=== PATIENT | female | born 1960 ===

== ENCOUNTER 2017-10-10 15:22 | Emergency (ER) | payer OTHER ==
[2017-10-10 15:22] VITALS: BMI 46.0
[2017-10-10 16:00] VITALS: TEMP 98.1; O2SAT 98
[2017-10-10 16:59] LABS: BASO # 0.1 K/uL (0.0-0.2); EOS # 0.1 K/uL (0.0-0.7); EOS % 0.5 % (0.0-4.0); HEMATOCRIT 44.3 % (34.0-47.0); LYMPH # 2.6 K/uL (1.0-4.3); LYMPH % 20.6 % (20.0-40.0); MEAN CELL VOLUME 78.9 fl (81.0-99.0); MEAN CORPUSCULAR HEMOGLOBIN 25.6 pg (27.0-31.0); MEAN CORPUSCULAR HGB CONC 32.5 g/dL (33.0-37.0); MEAN PLATELET VOLUME 8.2 fl (7.2-11.7); MONO # 0.3 K/uL (0.0-0.8); MONO % 2.6 % (0.0-10.0); NEUT # 9.7 K/uL (1.8-7.0); NEUT % 75.3 % (50.0-75.0); NRBC % 0.1 % (0.0-0.0); RED CELL DISTRIBUTION WIDTH 16.4 % (11.5-14.5); WHITE BLOOD COUNT 12.8 K/uL (4.8-10.8)
[2017-10-10 17:10] LABS: ALKALINE PHOSPHATASE 112 U/L (38-126); ALT/SGPT 34 U/L (9-52); AST/SGOT 29 U/L (14-36); BILIRUBIN,TOTAL 0.6 mg/dl (0.2-1.3); BLOOD UREA NITROGEN 12 mg/dl (7-17); CARBON DIOXIDE 26 mmol/L (22-30); CHLORIDE 99 mmol/L (98-107); GFR AFRICAN-AMERICAN > 60; GLUCOSE,RANDOM 126 mg/dL (65-105); POTASSIUM 3.3 MMOL/L (3.6-5.0); SODIUM 141 mmol/l (132-148); TOTAL PROTEIN 9.2 G/DL (6.3-8.2)
[2017-10-10] MEDS ORDERED: Potassium CL 10mEq/100ml 100 ML IVPB ONE (17:18)
[2017-10-10 17:40] LABS: ALB/GLOB RATIO 1.3 (1.0-2.1)
[2017-10-10 17:44] LABS: THYROID STIMULATING HORMONE 0.94 mIU/ML (0.46-4.68)
--- NOTE | 2017-10-10 17:50 | ED PDOC ---
HPI: Neurologic - General Time Seen by Provider: 10/10/17 16:06 Chief Complaint (Nursing): Dizziness/Lightheaded Chief Complaint (Provider): dizziness Exam Limitations: no limitations - History of Present Illness Timing/Duration: other (1 month, but h/o dizziness for 2 years intermittently) Associated Symptoms: fatigue, nausea/vomiting, numbness in legs/feet, paresthesia, weakness. denies: fever/chills, insomnia, loss of consciousness, muscle spasms, ringing in ears, seizures, slurred speech, trouble walking, vision changes Allergies/Adverse Reactions: Allergies acetaminophen [From Percocet] Allergy (Verified 01/25/16 12:03) FAINT hydrochlorothiazide Allergy (Verified 01/25/16 12:03) MOUTH TINGLING losartan [Losartan] Allergy (Verified 01/25/16 12:03) MOUTH TINGLING oxycodone HCl [From Percocet] Allergy (Verified 01/25/16 12:03) FAINT topiramate [From Topamax] Allergy (Verified 01/25/16 12:03) TINGLING TO BODY valacyclovir HCl [From Valtrex] Allergy (Verified 01/25/16 12:03) URTICARIA Home Medications: Ambulatory Orders Aspirin [Ecotrin] 81 mg PO DAILY 01/25/16 Atenolol/Chlorthalidone [Atenolol-Chlorthalidone 100-25] 1 tab PO DAILY Brimonidine Tartrate 1 drop BOTHEYES BID 01/25/16 Dorzolamide HCl [Trusopt] 1 drop BOTHEYES BID 01/25/16 Simvastatin [Zocor] 40 mg PO DAILY 01/25/16 Meclizine [Antivert] 25 mg PO Q12 #30 tab 01/26/16 amLODIPine [Norvasc] 5 mg PO DAILY #30 tab 01/09/17 Diazepam [Valium] 2 mg PO BID PRN #10 tab 10/10/17 Additional Complaint(s): Vertiginous dizziness for 2 years, but worsened over the last month. Taking meclizine with no relief. Seen in this ER for same 2016 and had inpatient workup, and followed up with ENT , which was normal as well. PMD: Nemesio Davenport in [place] Past Medical History Reviewed: Historical Data, Nursing Documentation, Vital Signs Vital Signs: Last Vital Signs Temp 98.1 F 10/10/17 15:57 Pulse 57 L 10/10/17 15:57 Resp 16 10/10/17 15:57 BP 181/62 H 10/10/17 15:57 Pulse Ox 98 10/10/17 15:57 - Medical History PMH: Arthritis, HTN, Hypercholesterolemia, Hyperlipidemia - Surgical History Surgical History: Cholecystectomy Other surgeries: Tubal ligation - Family History Family History: States: Diabetes, Hypertension - Social History Current smoker - smoking cessation education provided: No Alcohol: None Drugs: Denies - Home Medications Home Medications: Ambulatory Orders Medication Instructions Recorded Aspirin [Ecotrin] 81 mg PO DAILY 01/25/16 Atenolol/Chlorthalidone 1 tab PO DAILY 01/25/16 [Atenolol-Chlorthalidone 100-25] Brimonidine Tartrate 1 drop BOTHEYES BID 01/25/16 Dorzolamide HCl [Trusopt] 1 drop BOTHEYES BID 01/25/16 Simvastatin [Zocor] 40 mg PO DAILY 01/25/16 Meclizine [Antivert] 25 mg PO Q12 #30 tab 01/26/16 amLODIPine [Norvasc] 5 mg PO DAILY #30 tab 01/09/17 Diazepam [Valium] 2 mg PO BID PRN #10 tab 10/10/17 - Allergies Allergies/Adverse Reactions: Allergies Allergy/AdvReac Type Severity Reaction Status Date / Time acetaminophen [From Percocet] Allergy FAINT Verified 01/25/16 12:03 hydrochlorothiazide Allergy MOUTH Verified 01/25/16 12:03 TINGLING losartan [Losartan] Allergy MOUTH Verified 01/25/16 12:03 TINGLING oxycodone HCl [From Percocet] Allergy FAINT Verified 01/25/16 12:03 topiramate [From Topamax] Allergy TINGLING Verified 01/25/16 12:03 TO BODY valacyclovir HCl Allergy URTICARIA Verified 01/25/16 12:03 [From Valtrex] Review of Systems ROS Statement: Except As Marked, All Systems Reviewed And Found Negative (and as per HPI) Constitutional: Positive for: Weakness, Malaise Cardiovascular: Positive for: Light Headedness. Negative for: Chest Pain Respiratory: Negative for: Shortness of Breath Gastrointestinal: Positive for: Nausea, Vomiting. Negative for: Abdominal Pain , Diarrhea Neurological: Positive for: Headache, Dizziness. Negative for: Weakness, Numbness Psych: Positive for: Anxiety Physical Exam - Reviewed Nursing Documentation Reviewed: Yes Vital Signs Reviewed: Yes - Physical Exam Appears: Positive for: Non-toxic, Uncomfortable Head Exam: Positive for: ATRAUMATIC, NORMOCEPHALIC Skin: Positive for: Warm, Dry Eye Exam: Positive for: EOMI, PERRL. Negative for: Nystagmus ENT: Negative for: Pharyngeal Erythema, Tonsillar Exudate Neck: Positive for: Painless ROM, Supple Cardiovascular/Chest: Positive for: Regular Rate, Rhythm, Chest Non Tender. Negative for: Murmur Respiratory: Positive for: Normal Breath Sounds. Negative for: Wheezing Gastrointestinal/Abdominal: Positive for: Soft. Negative for: Tenderness Back: Positive for: Normal Inspection. Negative for: Vertebral Tenderness Extremity: Positive for: Normal ROM. Negative for: Deformity Lymphatic: Negative for: Adenopathy Neurologic/Psych: Positive for: Alert, office coordinator II-XII (intact), Oriented (x3), Mood/ Affect (anxious), Cerebellar Tests (normal), Gait (normal), Other ([place] increased symptoms in both directions). Negative for: Motor/Sensory Deficits, Aphasia, Facial Droop - Laboratory Results Result Diagrams: 10/10/17 16:52 10/10/17 16:52 Interpretation Of Abn Labs: Leukocytosis, hypokalemia. No emergently significant lab abnormalities. - ECG ECG: Positive for: Interpreted By Me ECG Rhythm: Positive for: Normal QRS, Normal ST Segment, Sinus Rhythm O2 Sat by Pulse Oximetry: 98 Pulse Ox Interpretation: Normal - Progress ED Course And Treament: DW pt hypokalemia and bradycardia. She reports she always has hypokalemia and bradycardia. Accession No. : [id number] Patient Name / ID : TRENTON REYES / [id number] Exam Date : 10/10/2017 18:40:34 ( Approved ) Study Comment : Sex / Age : F / 57Y Creator : Adilson Mathews MD Dictator : Workers Compensation Analyst : Supervisor Cutting Department : Adilson Mathews MD Approver2 : Report Date : 10/10/2017 19:41:00 My Comment : [facility] Division of Radiology [address] [facility] [address] Tel. no. Patient Name: ERIC CHOWDHURY Pt. Address: [address] [place] [address] Med. Rec #: [id number] [place] [address]: Jey MANNING, Nae Jaramillo Pt CELL Order Location: REGINA : 1960 Female Age: 57 Order #: [id number] Reason for exam: DIZZINESS HEADACHE CT Scan HEAD W/O CONTRAST Exam Date: 10/10/17 This imaging exam was performed at [facility] EXAM: CT Head Without Intravenous Contrast CLINICAL HISTORY: 57 years old, female; Signs and symptoms; Dizziness; Additional info: Dizziness headache TECHNIQUE: Axial computed tomography images of the head/brain without intravenous contrast. All CT scans at this facility use one or more dose reduction techniques, viz.: automated exposure control; ma/kV adjustment per patient size (including targeted exams where dose is matched to indication; i.e. head); or iterative reconstruction technique. Coronal and sagittal reformatted images were created and reviewed. COMPARISON: CT - HEAD W/O CONTRAST 2017-01-08 14:28 FINDINGS: Brain: No intracranial hemorrhage. No mass. No definite edema. Ventricles: No hydrocephalus. Bones/joints: No acute fracture. Soft tissues: Unremarkable. Sinuses: No acute sinusitis. Mastoid air cells: No mastoid effusion. Orbits: Unremarkable as visualized. IMPRESSION: 1. No acute intracranial abnormality. Dictated By: Adilson Mathews MD Dictated Date/Time: 10/10/171940 Signed By: Adilson Mathews MD Date Signed: 1940 Transcribed By: BERNICE Transcribe Date/Time : 10/10/171940 [id number] Re-evaluation Time: 18:00 Condition: Improved Disposition - Clinical Impression Clinical Impression: Severe dizziness, Hypokalemia Counseled Patient/Family Regarding: Studies Performed, Diagnosis, Need For Followup, Rx Given - Disposition Referrals: [facility] [place] [Outside] - 10/14/17 ([facility] SHANTE MIERCOLES O VIERN[facility]) Disposition: Routine/Home Disposition Time: 19:52 Condition: IMPROVED Prescriptions: Diazepam [Valium] 2 mg PO BID PRN #10 tab PRN Reason: SEVERE DIZZINESS Instructions: Dizziness (ED), Stress (ED), Hypokalemia (ED) Print Language: YI
[2017-10-10 18:28] VITALS: BP 136/61; PULSE 78; RESP 18
--- NOTE | 2017-10-10 19:41 | CT ---
EXAM: CT Head Without Intravenous Contrast CLINICAL HISTORY: 57 years old, female; Signs and symptoms; Dizziness; Additional info: Dizziness headache TECHNIQUE: Axial computed tomography images of the head/brain without intravenous contrast. All CT scans at this facility use one or more dose reduction techniques, viz.: automated exposure control; ma/kV adjustment per patient size (including targeted exams where dose is matched to indication; i.e. head); or iterative reconstruction technique. Coronal and sagittal reformatted images were created and reviewed. COMPARISON: CT - HEAD W/O CONTRAST 2017-01-08 14:28 FINDINGS: Brain: No intracranial hemorrhage. No mass. No definite edema. Ventricles: No hydrocephalus. Bones/joints: No acute fracture. Soft tissues: Unremarkable. Sinuses: No acute sinusitis. Mastoid air cells: No mastoid effusion. Orbits: Unremarkable as visualized. IMPRESSION: 1. No acute intracranial abnormality.
--- NOTE | 2017-10-11 08:27 | CARD ---
APPROVED REPORT EKG Measurement Heart [id number] <Conclusion> Normal sinus rhythm Nonspecific ST abnormality Prolonged QT Abnormal ECG
== END 2017-10-10 20:42 | disposition home or self-care (01) ==
LOC: H.ER 15:22
DX: R42 Dizziness and giddiness (principal); E87.6 Hypokalemia; E78.00 Pure hypercholesterolemia, unspecified; I10 Essential (primary) hypertension; Z79.82 Long term (current) use of aspirin; Z88.5 Allergy status to narcotic agent
CPT/HCPCS: 70450; 80053; 80324; 80345; 80346; 80349; 80353; 80358; 80361; 82948; 83735; 83880; 83992; 84100; 84443; 84484; 85025; 93005; 96374; 99285; J2405; J3480

== ENCOUNTER 2019-03-06 17:33 | Observation (INO) | payer OTHER ==
[2019-03-06 17:34] VITALS: BMI 46.0
--- NOTE | 2019-03-06 19:12 | ED PDOC ---
HPI: Chest Pain Time Seen by Provider: 03/06/19 18:11 Chief Complaint (Nursing): Chest Pain Chief Complaint (Provider): Chest Pain History Per: Patient History/Exam Limitations: no limitations Onset/Duration Of Symptoms: Days (x2) Current Symptoms Are (Timing): Still Present Additional Complaint(s): Patient is a 59 year old female with a past medical history of glaucoma, osteoarthritis and has recently been diagnosed with diabetes, who presents to the emergency department complaining of chest pain and fatigue, x2 days. Patient states the pain is mid sternal and has mild shortness of breath with no cough, fever, nausea or vomiting. Patient has no known history of cardiac diseases or heart attacks. PMD: Roosevelt Jordan Past Medical History Reviewed: Historical Data, Nursing Documentation, Vital Signs Vital Signs: Last Vital Signs Temp 98.4 F 03/06/19 17:42 Pulse 62 03/06/19 18:03 Resp 16 03/06/19 18:03 BP 140/76 03/06/19 18:03 Pulse Ox 100 03/06/19 17:42 - Medical History PMH: Arthritis, HTN, Hypercholesterolemia, Hyperlipidemia Other PMH: glaucoma - Surgical History Surgical History: Cholecystectomy - Family History Family History: States: Unknown Family Hx, Diabetes, Hypertension - Home Medications Home Medications: Ambulatory Orders Medication Instructions Recorded Aspirin [Ecotrin] 81 mg PO DAILY 01/25/16 Brimonidine Tartrate 1 drop BOTHEYES BID 01/25/16 Dorzolamide HCl [Trusopt] 1 drop BOTHEYES BID 01/25/16 Simvastatin [Zocor] 40 mg PO DAILY 01/25/16 Meclizine [Meclizine*] 25 mg PO Q12 #30 tab 01/26/16 amLODIPine [Norvasc] 5 mg PO DAILY #30 tab 01/09/17 Latanoprost/Pf [Latanoprost 0.005% 1 drop BOTHEYES DAILY 03/06/19 Eye Drop] busPIRone [Buspar] 10 mg PO BID 03/06/19 - Allergies Allergies/Adverse Reactions: Allergies Allergy/AdvReac Type Severity Reaction Status Date / Time acetaminophen [From Percocet] Allergy FAINT Verified 03/06/19 17:42 hydrochlorothiazide Allergy MOUTH Verified 03/06/19 17:42 TINGLING losartan [Losartan] Allergy MOUTH Verified 03/06/19 17:42 TINGLING oxycodone HCl [From Percocet] Allergy FAINT Verified 03/06/19 17:42 topiramate [From Topamax] Allergy TINGLING Verified 03/06/19 17:42 TO BODY valacyclovir HCl Allergy URTICARIA Verified 03/06/19 17:42 [From Valtrex] Review of Systems ROS Statement: Except As Marked, All Systems Reviewed And Found Negative Constitutional: Negative for: Fever Cardiovascular: Positive for: Chest Pain Respiratory: Negative for: Cough, Shortness of Breath Gastrointestinal: Negative for: Nausea, Vomiting Physical Exam - Reviewed Nursing Documentation Reviewed: Yes Vital Signs Reviewed: Yes - Physical Exam Appears: Positive for: Non-toxic, No Acute Distress Head Exam: Positive for: ATRAUMATIC, NORMOCEPHALIC Skin: Positive for: Normal Color, Warm, Dry. Negative for: Rash Eye Exam: Positive for: Normal appearance, EOMI, PERRL ENT: Positive for: Normal ENT Inspection Neck: Positive for: Normal, Painless ROM, Supple Cardiovascular/Chest: Positive for: Regular Rate, Rhythm. Negative for: Murmur Respiratory: Positive for: Normal Breath Sounds. Negative for: Respiratory Distress Gastrointestinal/Abdominal: Positive for: Normal Exam, Soft. Negative for: Tenderness Back: Positive for: Normal Inspection. Negative for: L CVA Tenderness, R CVA Tenderness, Vertebral Tenderness Extremity: Positive for: Normal ROM. Negative for: Pedal Edema, Deformity Neurological/Psych: Positive for: Alert, Oriented - Laboratory Results Result Diagrams: 03/07/19 04:45 03/07/19 04:45 - ECG O2 Sat by Pulse Oximetry: 100 (RA) Pulse Ox Interpretation: Normal Medical Decision Making Medical Decision Making: Time: 1905 A/P: Work up for chest pain, ACS. EKG shows no ST elevations/inversions. Will do basic cardiac work up. Ekg Bmp Troponin I CBC with differential Chest xray 2 views 1899 --Patient care endorsed to DR. Calderón, pending labs and chest xray. Scribe Attestation: Documented by Joey Devries, acting as a scribe Haider Kearns MD. Provider Scribe Attestation: All medical record entries made by the Scribe were at my direction and personally dictated by me. I have reviewed the chart and agree that the record accurately reflects my personal performance of the history, physical exam, medical decision making, and the department course for this patient. I have also personally directed, reviewed, and agree with the discharge instructions and disposition. Disposition - Clinical Impression Clinical Impression: Chest pain - Disposition Disposition: Transfer of Care Disposition Time: 19:00 Condition: FAIR
[2019-03-06 19:14] LABS: BASO # 0.1 K/uL (0.0-0.2); BASO % 0.9 % (0.0-2.0); EOS # 0.2 K/uL (0.0-0.7); EOS % 1.8 % (0.0-4.0); HEMOGLOBIN 13.1 g/dL (12.0-16.0); LYMPH # 2.3 K/uL (1.0-4.3); LYMPH % 25.5 % (20.0-40.0); MEAN CELL VOLUME 77.9 fl (81.0-99.0); MEAN CORPUSCULAR HEMOGLOBIN 25.3 pg (27.0-31.0); MEAN CORPUSCULAR HGB CONC 32.5 g/dL (33.0-37.0); MEAN PLATELET VOLUME 7.9 fl (7.2-11.7); MONO # 0.6 K/uL (0.0-0.8); MONO % 6.2 % (0.0-10.0); NEUT # 5.8 K/uL (1.8-7.0); NEUT % 65.6 % (50.0-75.0); RBC 5.17 Mil/uL (3.80-5.20); RED CELL DISTRIBUTION WIDTH 16.5 % (11.5-14.5); WHITE BLOOD COUNT 8.9 K/uL (4.8-10.8)
--- NOTE | 2019-03-06 19:20 | ED PDOC ---
- Laboratory Results Result Diagrams: 03/06/19 19:06 03/06/19 19:06 - ECG O2 Sat by Pulse Oximetry: 100 (RA) Pulse Ox Interpretation: Normal Medical Decision Making Medical Decision Making: Time: 1899 --Patient care endorsed by Dr. Kearns pending labs and chest xray. Time: 1999 --Patient's labs are within normal limits, CXR shows no acute abnormalities --Results discussed with patient and daughter, advised OBS for continuous cardiac monitoring and serial troponins given age and risk factors --Case discussed with Dr. Vazquez who accepts admission Scribe Attestation: Documented by Joey Devries, acting as a scribe Nehemiah Calderón MD. Provider Scribe Attestation: All medical record entries made by the Scribe were at my direction and personally dictated by me. I have reviewed the chart and agree that the record accurately reflects my personal performance of the history, physical exam, medical decision making, and the department course for this patient. I have also personally directed, reviewed, and agree with the discharge instructions and disposition. Disposition - Clinical Impression Clinical Impression: Chest pain - POA Present On Arrival: None - Disposition Disposition: Hospitalized as Observation Patient Disposition Time: 20:00 Condition: FAIR
[2019-03-06 19:28] LABS: BLOOD UREA NITROGEN 11 mg/dl (7-17); CALCIUM 9.7 mg/dL (8.4-10.2); GFR NON-AFRICAN AMERICAN > 60
--- NOTE | 2019-03-06 20:32 | CP.PCM.HP ---
<Ariane Hill - Last Filed: 03/06/19 21:21> History of Present Illness - History of Present Illness History of Present Illness: 59 yo obese female with PMHx hereditary glaucoma, HTN, HLD, OA presents to ED c/o chest pain onset 2 days ago at rest. She states having MCGRATH at home and she took the BP and was 215/100. on arrival BP was 140/70. Patient describes the pain as a pressure in mid sternal and that is reproducible with chest wall palpation. Pain does not radiates and does not have alleviating or aggravating factors. Patient endorses previous episode of similar pain 5 years ago and was told that pain was MSK in origin. She also states pain has been on and off since then and has an appt on on [facility] for cardiac stress test. She also states h/o anxiety and expressed this has been a tough week for her. Patient denies shortness of breath, cough, fever, nausea or vomiting, no epigastric or other abd pain. PMD: Roosevelt Jordan PMHx: hereditary glaucoma, HTN, HLD, OA Medications: reviewed, see below SHx: cholecystectomy, BTL Allergy: as above SocHx: lives with daughter and ; denies etoh, smoking or illicit drug use ED course: CBC/Bmp wnl Troponin I x1 negative Chest xray negative for acute pulmonary disease Ekg shows no ST elevations/inversions. ASA 162 mg po once Present on Admission - Present on Admission Any Indicators Present on Admission: No Review of Systems - Review of Systems All systems: reviewed and no additional remarkable complaints except (HPI) Past Patient History - Infectious Disease Hx of Infectious Diseases: None - Past Social History Smoking Status: Never Smoked - CARDIAC Hx Hypercholesterolemia: Yes Hx Hypertension: Yes - NEUROLOGICAL Hx Dizziness: Yes - HEENT Hx Glaucoma: Yes - ENDOCRINE/METABOLIC Other/Comment: pre-dm - MUSCULOSKELETAL/RHEUMATOLOGICAL Hx Arthritis: Yes - PSYCHIATRIC Hx Substance Use: No - SURGICAL HISTORY Hx Cholecystectomy: Yes - ANESTHESIA Hx Anesthesia: Yes Hx Anesthesia Reactions: No Meds Allergies/Adverse Reactions: Allergies Allergy/AdvReac Type Severity Reaction Status Date / Time acetaminophen [From Percocet] Allergy FAINT Verified 03/06/19 17:42 hydrochlorothiazide Allergy MOUTH Verified 03/06/19 17:42 TINGLING losartan [Losartan] Allergy MOUTH Verified 03/06/19 17:42 TINGLING oxycodone HCl [From Percocet] Allergy FAINT Verified 03/06/19 17:42 topiramate [From Topamax] Allergy TINGLING Verified 03/06/19 17:42 TO BODY valacyclovir HCl Allergy URTICARIA Verified 03/06/19 17:42 [From Valtrex] Physical Exam - Constitutional Appears: No Acute Distress - Head Exam Head Exam: NORMAL INSPECTION - Eye Exam Eye Exam: EOMI, PERRL - ENT Exam ENT Exam: Mucous Membranes Moist - Respiratory Exam Respiratory Exam: Clear to Auscultation Bilateral. absent: Rales, Wheezes - Cardiovascular Exam Cardiovascular Exam: REGULAR RHYTHM, +S1, +S2. absent: Tachycardia, Systolic Murmur Additional comments: Chest wall tender on palpation - GI/Abdominal Exam GI & Abdominal Exam: Normal Bowel Sounds, Soft. absent: Distended, Tenderness - Extremities Exam Extremities exam: Negative for: calf tenderness, pedal edema - Neurological Exam Neurological exam: Alert, CN II-XII Intact, Oriented x3 - Skin Skin Exam: Dry, Normal Color, Warm Results - Vital Signs Recent Vital Signs: Last Vital Signs Temp 98.4 F 03/06/19 17:42 Pulse 62 03/06/19 18:03 Resp 16 03/06/19 18:03 BP 140/76 03/06/19 18:03 Pulse Ox 100 03/06/19 19:20 - Labs Result Diagrams: 03/06/19 19:06 03/06/19 19:06 Labs: Laboratory Results - last 24 hr 03/06/19 03/06/19 19:06 19:06 WBC 8.9 RBC 5.17 Hgb 13.1 Hct 40.3 MCV 77.9 L MCH 25.3 L MCHC 32.5 L RDW 16.5 H Plt Count 364 MPV 7.9 Neut % (Auto) 65.6 Lymph % (Auto) 25.5 Candler % (Auto) 6.2 Eos % (Auto) 1.8 Baso % (Auto) 0.9 Neut # (Auto) 5.8 Lymph # (Auto) 2.3 Candler # (Auto) 0.6 Eos # (Auto) 0.2 Baso # (Auto) 0.1 Sodium 139 Potassium 3.6 Chloride 98 Carbon Dioxide 28 Anion Gap 17 BUN 11 Creatinine 0.6 L Est GFR ( Amer) > 60 Est GFR (Non-Af Amer) > 60 Random Glucose 134 H Calcium 9.7 Troponin I < 0.0120 Assessment & Plan - Assessment and Plan (Free Text) Assessment: 59 yo obese female with PMHx hereditary glaucoma, HTN, HLD, OA admitted for evaluation and management of CP r/o ACS vs MSK pain. Plan: Chest pain r/o ACS vs MSK pain - admit to tele - continue surveillance system monitor - heart healthy diet - troponin x1 negative, f/u trending - EKG and labs in am - for echo in am - Cardiology Dr Bee consulted, recs appreciated - ASA 81 mg - continue home meds - Ultram prn for pain HTN - controlled - continue home meds HLD - continue lipitor Anxiety - feeling anxious - continue home meds h/o Glaucoma - asymptomatic - continue home eyes drops DVT ppx - SCD for now. - pt ambulating Case seen and examined with Dr Vazquez. <Derick Vazquez - Last Filed: 03/07/19 05:40> Results - Vital Signs Recent Vital Signs: Last Vital Signs Temp 98.1 F 03/07/19 04:51 Pulse 70 03/07/19 04:51 Resp 20 03/07/19 04:51 BP 134/70 03/07/19 04:51 Pulse Ox 97 03/07/19 04:51 - Labs Result Diagrams: 03/06/19 19:06 03/06/19 19:06 Labs: Laboratory Results - last 24 hr 03/06/19 03/06/19 03/06/19 19:06 19:06 22:20 WBC 8.9 RBC 5.17 Hgb 13.1 Hct 40.3 MCV 77.9 L MCH 25.3 L MCHC 32.5 L RDW 16.5 H Plt Count 364 MPV 7.9 Neut % (Auto) 65.6 Lymph % (Auto) 25.5 Candler % (Auto) 6.2 Eos % (Auto) 1.8 Baso % (Auto) 0.9 Neut # (Auto) 5.8 Lymph # (Auto) 2.3 Candler # (Auto) 0.6 Eos # (Auto) 0.2 Baso # (Auto) 0.1 Sodium 139 Potassium 3.6 Chloride 98 Carbon Dioxide 28 Anion Gap 17 BUN 11 Creatinine 0.6 L Est GFR ( Amer) > 60 Est GFR (Non-Af Amer) > 60 POC Glucose (mg/dL) 199 H Random Glucose 134 H Calcium 9.7 Troponin I < 0.0120 03/07/19 03/07/19 01:00 05:06 WBC RBC Hgb Hct MCV MCH MCHC RDW Plt Count MPV Neut % (Auto) Lymph % (Auto) Candler % (Auto) Eos % (Auto) Baso % (Auto) Neut # (Auto) Lymph # (Auto) Candler # (Auto) Eos # (Auto) Baso # (Auto) Sodium Potassium Chloride Carbon Dioxide Anion Gap BUN Creatinine Est GFR ( Amer) Est GFR (Non-Af Amer) POC Glucose (mg/dL) 119 H Random Glucose Calcium Troponin I < 0.0120 Attending/Attestation - Attestation I have personally seen and examined this patient.: Yes I have fully participated in the care of the patient.: Yes I have reviewed all pertinent clinical information: Yes Notes (Text): 03/07/19 05:28 I saw, examined and discussed this patient with Dr Hill. i agree with the assessment and plan outlined. This is a 59 years old female with hx of HTN, Prediabetes and recurrent chest wall pain over the years, now comes with 2 days of this reproducible pain to the sternum and parasternal chest wall. The chest X Ray shows Left Atrial enlargemen t while the EKG shows 1st degree AV Block and prolonged Qtc We will treat for Muscular skeletal pain most likely Costochondritis and r/o ACS with serial Troponin and EKG with ECHO and consult with cardiology. Treat Hypertension and consult Psychiatry for Anxiety. Derick Vazquez MD
[2019-03-06] MEDS ORDERED: Dorzolamide 2% Ophth Soln OU SCH (21:15)
[2019-03-06] MEDS: Brimonidine 0.2% 50 DROP/5 ML BOTTLE OU SCH (23:34)
[2019-03-07 05:50] LABS: BLOOD UREA NITROGEN 13 mg/dl (7-17); CALCIUM 9.5 mg/dL (8.4-10.2); GFR NON-AFRICAN AMERICAN > 60; HDL CHOLESTEROL 61 MG/DL (30-70)
[2019-03-07 05:53] LABS: BASO % 0.6 % (0.0-2.0); EOS # 0.1 K/uL (0.0-0.7); EOS % 1.5 % (0.0-4.0); HEMOGLOBIN 12.3 g/dL (12.0-16.0); LYMPH # 2.6 K/uL (1.0-4.3); LYMPH % 31.2 % (20.0-40.0); MEAN CELL VOLUME 77.8 fl (81.0-99.0); MEAN CORPUSCULAR HEMOGLOBIN 25.4 pg (27.0-31.0); MEAN CORPUSCULAR HGB CONC 32.6 g/dL (33.0-37.0); MEAN PLATELET VOLUME 7.8 fl (7.2-11.7); MONO # 0.6 K/uL (0.0-0.8); NEUT % 59.7 % (50.0-75.0); RBC 4.84 Mil/uL (3.80-5.20); RED CELL DISTRIBUTION WIDTH 16.8 % (11.5-14.5); WHITE BLOOD COUNT 8.4 K/uL (4.8-10.8)
[2019-03-07 06:00] LABS: LDL CHOLESTEROL 53 mg/dL (0-129)
[2019-03-07] MEDS ORDERED: Pneumococcal 23-Valent Vaccine IM ONE (06:00)
[2019-03-07] MEDS ORDERED: Potassium Chloride 20 mEq ER Tab PO ONE (06:31)
[2019-03-07] MEDS ORDERED: Insulin Lispro (humaLOG) 100 Units/ml Inj SC SCH (07:00)
[2019-03-07 07:56] VITALS: RESP 18
--- NOTE | 2019-03-07 08:40 | RAD ---
Date of service: 03/06/2019 HISTORY: cough COMPARISON: 01/08/2017 TECHNIQUE: Chest PA and lateral views FINDINGS: LUNGS: No active pulmonary disease. PLEURA: No significant pleural effusion identified. No pneumothorax apparent. CARDIOVASCULAR: No aortic atherosclerotic calcification present. Mild cardiomegaly-similar no pulmonary vascular congestion. OSSEOUS STRUCTURES: Thoracic spondylosis. VISUALIZED UPPER ABDOMEN: Normal. OTHER FINDINGS: None. IMPRESSION: Mild cardiomegaly-similar. No interval pathology noted.
[2019-03-07] MEDS: Brimonidine 0.2% 50 DROP/5 ML BOTTLE OU SCH (08:52)
--- NOTE | 2019-03-07 08:53 | CARD ---
APPROVED REPORT Date of service: 03/07/2019 EKG Measurement Heart [id number] <Conclusion> Sinus rhythm with 1st degree AV block Otherwise normal ECG
[2019-03-07] MEDS: Latanoprost 0.005% Opht SOUTION OU SCH ×2 (08:54→08:59)
--- NOTE | 2019-03-07 08:58 | CARD ---
APPROVED REPORT Date of service: 03/06/2019 EKG Measurement Heart [id number] <Conclusion> Sinus rhythm with 1st degree AV block Nonspecific ST abnormality Prolonged QT Abnormal ECG
--- NOTE | 2019-03-07 10:23 | CP.PCM.CON ---
History of Present Illness - History of Present Illness History of Present Illness: This 59-year-old chronically overweight hypertensive female came to the emergency room after experiencing left pectoral ache for couple of days. She denies that its intensity significantly changed with physical activity. She does admit to the fact that there is tenderness in this area. She did not suffer any trauma and she did not pickling solution maker any heavy object. She is not a smoker or a diabetic but is significantly sedentary in her lifestyle. 3 years back she was in an emergency room complaining of similar complaints and was found to have no cardiac issues. She denies any episode of similar chest discomfort during physical activity. There is no significant family history of vascular disease. The patient does have glaucoma and uses multiple eyedrops to manage her intraocular pressure. She has also been taking BuSpar for psychiatric issues. Physical examination shows an elderly pleasant female who is overweight. She is lying virtually flat in bed and can carry on a conversation. She breathes at 14 breaths/min and has a heart rate of 76 bpm regular and a blood pressure of 124/74 mmHg. Her jugular venous pressure was not elevated and there was no edema over her lower extremities. The pedal pulses were well felt. There were no carotid bruits. Thyroid and breast did not reveal anything abnormal. There was an area of tenderness in the left second intercostal space in the para sternal area which reproduced the discomfort that she reported on coming to the emergency room. Much milder tenderness also exists on the right side of the sternum in the second and third intercostal space. The apex was not palpable the first and second heart sounds were normal there was no murmur or gallop. There were no rales. Her abdomen was soft liver and spleen were not palpable. Her electrocardiogram shows sinus rhythm with nonspecific ST changes no Q waves were detected or evolving ST abnormalities during the. Of chest discomfort were not seen. Review of her electrocardiogram going back couple of years shows a similar tracing. Her echocardiogram today shows normal-sized left ventricle with normal regional wall motion and a preserved left ventricular systolic function with no evidence of significant valve abnormality. 3 sets of cardiac enzymes were negative for any evidence of right injury. Rest of her labs were noted. Impression: Chest wall pain with no evidence of acute coronary syndrome. History of hypertension chronic exogenous obesity glaucoma anxiety disorder. The patient may be allowed to return home and be managed as an outpatient. Past Patient History - Infectious Disease Hx of Infectious Diseases: None - Past Social History Smoking Status: Never Smoked - CARDIAC Hx Cardiac Disorders: Yes (HTN/ High Cholesterol) Hx Hypercholesterolemia: Yes Hx Hypertension: Yes - PULMONARY Hx Respiratory Disorders: No - NEUROLOGICAL Hx Dizziness: Yes - HEENT Hx Glaucoma: Yes - RENAL Hx Chronic Kidney Disease: No - ENDOCRINE/METABOLIC Hx Endocrine Disorders: Yes Other/Comment: Pre Diabetes - HEMATOLOGICAL/ONCOLOGICAL Hx Blood Disorders: No Hx AIDS: No Hx Human Immunodeficiency Virus (HIV): No - INTEGUMENTARY Hx Dermatological Problems: No - MUSCULOSKELETAL/RHEUMATOLOGICAL Hx Musculoskeletal Disorders: Yes Hx Arthritis: Yes Hx Falls: Yes - GASTROINTESTINAL Hx Gastrointestinal Disorders: No - GENITOURINARY/GYNECOLOGICAL Hx Genitourinary Disorders: No - PSYCHIATRIC Hx Psychophysiologic Disorder: Yes Hx Anxiety: Yes Hx Depression: Yes Hx Substance Use: No - SURGICAL HISTORY Hx Surgeries: Yes Hx Cholecystectomy: Yes Hx Tubal Ligation: Yes - ANESTHESIA Hx Anesthesia: Yes Hx Anesthesia Reactions: No Meds Allergies/Adverse Reactions: Allergies Allergy/AdvReac Type Severity Reaction Status Date / Time acetaminophen [From Percocet] Allergy FAINT Verified 03/06/19 17:42 hydrochlorothiazide Allergy MOUTH Verified 03/06/19 17:42 TINGLING losartan [Losartan] Allergy MOUTH Verified 03/06/19 17:42 TINGLING oxycodone HCl [From Percocet] Allergy FAINT Verified 03/06/19 17:42 topiramate [From Topamax] Allergy TINGLING Verified 03/06/19 17:42 TO BODY valacyclovir HCl Allergy URTICARIA Verified 03/06/19 17:42 [From Valtrex] - Medications Medications: Current Medications Amlodipine Besylate (Norvasc) 5 mg PO DAILY [facility] Last Admin: 03/07/19 08:54 Dose: 5 mg Aspirin (Ecotrin) 81 mg PO DAILY [facility] Last Admin: 03/07/19 08:53 Dose: 81 mg Atorvastatin Calcium (Lipitor) 20 mg PO DAILY [facility] Last Admin: 03/07/19 08:53 Dose: 20 mg Brimonidine Tartrate (Alphagan 0.2% Opht) 1 drop OU BID [facility] Last Admin: 03/07/19 08:52 Dose: 1 drop Buspirone HCl (Buspar) 10 mg PO BID [facility] Last Admin: 03/07/19 08:53 Dose: 10 mg Dorzolamide HCl (Trusopt) 1 drop OU BID [facility] Last Admin: 03/06/19 23:33 Dose: Not Given Insulin Human Lispro (Humalog) 0 units SC ACCU-CHECK NAVA; Protocol Last Admin: 03/07/19 07:16 Dose: Not Given Latanoprost (Xalatan Opht) 1 drop OU DAILY [facility] Last Admin: 03/07/19 08:59 Dose: Not Given Tramadol HCl (Ultram) 50 mg PO Q6 PRN PRN Reason: Pain, moderate (4-7) Results - Vital Signs Recent Vital Signs: Last Vital Signs Temp 98.4 F 03/07/19 07:55 Pulse 64 03/07/19 08:54 Resp 18 03/07/19 07:55 BP 146/81 03/07/19 08:54 Pulse Ox 95 03/07/19 07:55 - Labs Result Diagrams: 03/07/19 04:45 03/07/19 04:45 Labs: Laboratory Results - last 24 hr 03/06/19 03/06/19 03/06/19 19:06 19:06 22:20 WBC 8.9 RBC 5.17 Hgb 13.1 Hct 40.3 MCV 77.9 L MCH 25.3 L MCHC 32.5 L RDW 16.5 H Plt Count 364 MPV 7.9 Neut % (Auto) 65.6 Lymph % (Auto) 25.5 [place] % (Auto) 6.2 Eos % (Auto) 1.8 Baso % (Auto) 0.9 Neut # (Auto) 5.8 Lymph # (Auto) 2.3 [place] # (Auto) 0.6 Eos # (Auto) 0.2 Baso # (Auto) 0.1 Sodium 139 Potassium 3.6 Chloride 98 Carbon Dioxide 28 Anion Gap 17 BUN 11 Creatinine 0.6 L Est GFR ( Amer) > 60 Est GFR (Non-Af Amer) > 60 POC Glucose (mg/dL) 199 H Random Glucose 134 H Calcium 9.7 Phosphorus Magnesium Troponin I < 0.0120 Triglycerides Cholesterol LDL Cholesterol Direct HDL Cholesterol 03/07/19 03/07/19 03/07/19 01:00 04:45 04:45 WBC 8.4 RBC 4.84 Hgb 12.3 Hct 37.7 MCV 77.8 L MCH 25.4 L MCHC 32.6 L RDW 16.8 H Plt Count 340 MPV 7.8 Neut % (Auto) 59.7 Lymph % (Auto) 31.2 [place] % (Auto) 7.0 Eos % (Auto) 1.5 Baso % (Auto) 0.6 Neut # (Auto) 5.0 Lymph # (Auto) 2.6 [place] # (Auto) 0.6 Eos # (Auto) 0.1 Baso # (Auto) 0.0 Sodium 139 Potassium 3.4 L Chloride 101 Carbon Dioxide 31 H Anion Gap 10 BUN 13 Creatinine 0.6 L Est GFR ( Amer) > 60 Est GFR (Non-Af Amer) > 60 POC Glucose (mg/dL) Random Glucose 103 Calcium 9.5 Phosphorus Magnesium Troponin I < 0.0120 Triglycerides 111 Cholesterol 133 LDL Cholesterol Direct 53 HDL Cholesterol 61 03/07/19 03/07/19 03/07/19 04:45 05:06 07:00 WBC RBC Hgb Hct MCV MCH MCHC RDW Plt Count MPV Neut % (Auto) Lymph % (Auto) [place] % (Auto) Eos % (Auto) Baso % (Auto) Neut # (Auto) Lymph # (Auto) [place] # (Auto) Eos # (Auto) Baso # (Auto) Sodium Potassium Chloride Carbon Dioxide Anion Gap BUN Creatinine Est GFR ( Amer) Est GFR (Non-Af Amer) POC Glucose (mg/dL) 119 H Random Glucose Calcium Phosphorus 4.1 Magnesium 2.1 Troponin I < 0.0120 Triglycerides Cholesterol LDL Cholesterol Direct HDL Cholesterol
--- NOTE | 2019-03-07 11:12 | CP.PCM.DIS ---
<Ruth Jack - Last Filed: 03/07/19 11:46> Provider - Provider Date of Admission: 03/06/19 20:00 Attending physician: Noel Pérez MD Consults: 03/07/19 05:41 Psychiatry Consult Routine Comment: Consulting Provider: Wilbur Reza Consulting Physician: Wilbur Reza Reason for Consult: Anxiety Disorder 03/07/19 09:09 Cardiology Consult Routine Comment: Consulting Provider: Florentin Uribe V Consulting Physician: Florentin Uribe V Reason for Consult: EKG changes with Chest pain Time Spent in preparation of Discharge (in minutes): 30 Diagnosis - Discharge Diagnosis (1) Chest pain Status: Acute (2) Glaucoma Status: Chronic (3) Hypertension Status: Chronic Hospital Course - Lab Results Lab Results: Most Recent Lab Values WBC 8.4 K/uL (4.8-10.8) 03/07/19 04:45 RBC 4.84 Mil/uL (3.80-5.20) 03/07/19 04:45 Hgb 12.3 g/dL (12.0-16.0) 03/07/19 04:45 Hct 37.7 % (34.0-47.0) 03/07/19 04:45 MCV 77.8 fl (81.0-99.0) L 03/07/19 04:45 MCH 25.4 pg (27.0-31.0) L 03/07/19 04:45 MCHC 32.6 g/dL (33.0-37.0) L 03/07/19 04:45 RDW 16.8 % (11.5-14.5) H 03/07/19 04:45 Plt Count 340 K/uL (130-400) 03/07/19 04:45 MPV 7.8 fl (7.2-11.7) 03/07/19 04:45 Neut % (Auto) 59.7 % (50.0-75.0) 03/07/19 04:45 Lymph % (Auto) 31.2 % (20.0-40.0) 03/07/19 04:45 [place] % (Auto) 7.0 % (0.0-10.0) 03/07/19 04:45 Eos % (Auto) 1.5 % (0.0-4.0) 03/07/19 04:45 Baso % (Auto) 0.6 % (0.0-2.0) 03/07/19 04:45 Neut # (Auto) 5.0 K/uL (1.8-7.0) 03/07/19 04:45 Lymph # (Auto) 2.6 K/uL (1.0-4.3) 03/07/19 04:45 [place] # (Auto) 0.6 K/uL (0.0-0.8) 03/07/19 04:45 Eos # (Auto) 0.1 K/uL (0.0-0.7) 03/07/19 04:45 Baso # (Auto) 0.0 K/uL (0.0-0.2) 03/07/19 04:45 Sodium 139 mmol/l (132-148) 03/07/19 04:45 Potassium 3.4 MMOL/L (3.6-5.0) L 03/07/19 04:45 Chloride 101 mmol/L (98-107) 03/07/19 04:45 Carbon Dioxide 31 mmol/L (22-30) H 03/07/19 04:45 Anion Gap 10 (10-20) 03/07/19 04:45 BUN 13 mg/dl (7-17) 03/07/19 04:45 Creatinine 0.6 mg/dl (0.7-1.2) L 03/07/19 04:45 Est GFR ( Amer) > 60 03/07/19 04:45 Est GFR (Non-Af Amer) > 60 03/07/19 04:45 POC Glucose (mg/dL) 119 mg/dL (65-110) H 03/07/19 05:06 Random Glucose 103 mg/dL (65-105) 03/07/19 04:45 Calcium 9.5 mg/dL (8.4-10.2) 03/07/19 04:45 Phosphorus 4.1 mg/dl (2.5-4.5) 03/07/19 04:45 Magnesium 2.1 MG/DL (1.6-2.3) 03/07/19 04:45 Troponin I < 0.0120 ng/mL (0.00-0.120) 03/07/19 07:00 Triglycerides 111 mg/DL (0-149) 03/07/19 04:45 Cholesterol 133 mg/dL (0-199) 03/07/19 04:45 LDL Cholesterol Direct 53 mg/dL (0-129) 03/07/19 04:45 HDL Cholesterol 61 MG/DL (30-70) 03/07/19 04:45 - Hospital Course Hospital Course: 59 yo obese female with history of hereditary glaucoma, HTN, HLD, OA presented admitted to [facility] to rule out ACS, found to have EKG changes. Chest pain was reproducible. During her stay, she was hemodynamically stable. EKG demonstrated changes (first degree AV block)- Cardiac consult was obtained and an Echo because of a murmur heard on physical exam. Cardiac consult, patient may follow up as outpatient. Troponins were negative x3. Chest xray negative for acute pulmonary disease. At this time cardiac workup is negative, patient encouraged to follow up with her PMD, DR. Jordan as outpatient. Discharge Exam - Head Exam Head Exam: NORMAL INSPECTION - Eye Exam Eye Exam: Normal appearance - ENT Exam ENT Exam: Mucous Membranes Moist - Neck Exam Neck exam: Normal Inspection - Respiratory Exam Respiratory Exam: UNREMARKABLE. absent: Accessory Muscle Use, Chest Wall Tenderness, Decreased Breath Sounds, Prolonged Expiratory Phase, Rales, Rhonchi, Wheezes, Respiratory Distress, Stridor - Cardiovascular Exam Cardiovascular Exam: +S1, +S2 Additional comments: Murmur present - GI/Abdominal Exam GI & Abdominal Exam: Normal Bowel Sounds, Soft, Unremarkable. absent: Distended, Firm, Guarding, Hernia, Rebound, Rigid, Tenderness - Neurological Exam Neurological exam: Alert, Oriented x3 - Psychiatric Exam Psychiatric exam: Normal Affect, Normal Mood - Skin Skin Exam: Dry, Intact, Normal Color, Warm Discharge Plan - Follow Up Plan Condition: FAIR Disposition: HOME/ ROUTINE Patient education suggested?: Yes Instructions: Chest Pain (DC) Additional Instructions: follow up with in 1 week Referrals: Noel Pérez MD [Medical Doctor] - Florentin Uribe MD [Staff Provider] - Roosevelt Jordan MD [Medical Doctor] - <Zaida Esquivel - Last Filed: 03/07/19 13:51> Provider - Provider Date of Admission: 03/06/19 20:00 Attending physician: Noel Pérez MD Consults: 03/07/19 09:09 Cardiology Consult Routine Comment: Consulting Provider: Florentin Uribe V Consulting Physician: Florentin Uribe V Reason for Consult: EKG changes with Chest pain Hospital Course - Lab Results Lab Results: Most Recent Lab Values WBC 8.4 K/uL (4.8-10.8) 03/07/19 04:45 RBC 4.84 Mil/uL (3.80-5.20) 03/07/19 04:45 Hgb 12.3 g/dL (12.0-16.0) 03/07/19 04:45 Hct 37.7 % (34.0-47.0) 03/07/19 04:45 MCV 77.8 fl (81.0-99.0) L 03/07/19 04:45 MCH 25.4 pg (27.0-31.0) L 03/07/19 04:45 MCHC 32.6 g/dL (33.0-37.0) L 03/07/19 04:45 RDW 16.8 % (11.5-14.5) H 03/07/19 04:45 Plt Count 340 K/uL (130-400) 03/07/19 04:45 MPV 7.8 fl (7.2-11.7) 03/07/19 04:45 Neut % (Auto) 59.7 % (50.0-75.0) 03/07/19 04:45 Lymph % (Auto) 31.2 % (20.0-40.0) 03/07/19 04:45 [place] % (Auto) 7.0 % (0.0-10.0) 03/07/19 04:45 Eos % (Auto) 1.5 % (0.0-4.0) 03/07/19 04:45 Baso % (Auto) 0.6 % (0.0-2.0) 03/07/19 04:45 Neut # (Auto) 5.0 K/uL (1.8-7.0) 03/07/19 04:45 Lymph # (Auto) 2.6 K/uL (1.0-4.3) 03/07/19 04:45 [place] # (Auto) 0.6 K/uL (0.0-0.8) 03/07/19 04:45 Eos # (Auto) 0.1 K/uL (0.0-0.7) 03/07/19 04:45 Baso # (Auto) 0.0 K/uL (0.0-0.2) 03/07/19 04:45 Sodium 139 mmol/l (132-148) 03/07/19 04:45 Potassium 3.4 MMOL/L (3.6-5.0) L 03/07/19 04:45 Chloride 101 mmol/L (98-107) 03/07/19 04:45 Carbon Dioxide 31 mmol/L (22-30) H 03/07/19 04:45 Anion Gap 10 (10-20) 03/07/19 04:45 BUN 13 mg/dl (7-17) 03/07/19 04:45 Creatinine 0.6 mg/dl (0.7-1.2) L 03/07/19 04:45 Est GFR ( Amer) > 60 03/07/19 04:45 Est GFR (Non-Af Amer) > 60 03/07/19 04:45 POC Glucose (mg/dL) 194 mg/dL (65-110) H 03/07/19 10:57 Random Glucose 103 mg/dL (65-105) 03/07/19 04:45 Hemoglobin A1c 6.7 % (4.2-6.5) H 03/07/19 04:45 Calcium 9.5 mg/dL (8.4-10.2) 03/07/19 04:45 Phosphorus 4.1 mg/dl (2.5-4.5) 03/07/19 04:45 Magnesium 2.1 MG/DL (1.6-2.3) 03/07/19 04:45 Troponin I < 0.0120 ng/mL (0.00-0.120) 03/07/19 07:00 Triglycerides 111 mg/DL (0-149) 03/07/19 04:45 Cholesterol 133 mg/dL (0-199) 03/07/19 04:45 LDL Cholesterol Direct 53 mg/dL (0-129) 03/07/19 04:45 HDL Cholesterol 61 MG/DL (30-70) 03/07/19 04:45 Attending/Attestation - Attestation I have personally seen and examined this patient.: Yes I have fully participated in the care of the patient.: Yes I have reviewed all pertinent clinical information, including history, physical exam and plan: Yes Notes (Text): Chest Pain , ACS ruled out, Pain likely musculoskeletal Pain HTN Glaucoma Anxiety -Troponin x 3 negative -CP reproducible - evaluated by Cardio and cleared for d/c - BP uncontrolled, cont Coreg, HCTZ and Lisinopril, add Norvasc - ff up with PMD kvng - ff up with Psych as outpt
[2019-03-07 12:05] VITALS: BP 138/76; PULSE 72; TEMP 98.1
[2019-03-09 04:16] VITALS: O2SAT 100
== END 2019-03-07 12:35 | disposition home or self-care (01) ==
LOC: H.ER 17:33 → H.ERHOLD 20:00 → H.TEL 22:24
PROVIDERS: ADMIT Internal Medicine; ATTEND Internal Medicine
DX: I44.0 Atrioventricular block, first degree (principal); M19.90 Unspecified osteoarthritis, unspecified site; I10 Essential (primary) hypertension; E78.00 Pure hypercholesterolemia, unspecified; E78.5 Hyperlipidemia, unspecified; H40.9 Unspecified glaucoma; Z79.82 Long term (current) use of aspirin; E66.9 Obesity, unspecified; Z68.41 Body mass index [BMI] 40.0-44.9, adult; F41.9 Anxiety disorder, unspecified; R73.03 Prediabetes; Z88.6 Allergy status to analgesic agent; Z88.5 Allergy status to narcotic agent; Z23 Encounter for immunization
CPT/HCPCS: 36415; 71046; 80048; 80061; 82948; 83036; 83735; 84100; 84484; 85025; 90471; 90732; 93005; 93306; 99285; G0378

== ENCOUNTER 2019-03-15 11:56 | Emergency (ER) | payer OTHER ==
[2019-03-15 11:58] VITALS: BMI 46.0
--- NOTE | 2019-03-15 12:16 | ED PDOC ---
Syncope/Near Syncope/Dizziness Time Seen by Provider: 03/15/19 12:07 Chief Complaint (Nursing): Dizziness/Lightheaded Chief Complaint (Provider): Dizzy History Per: Patient Additional Complaint(s): 59 yo female, PMH of HTN, Anxiety, presents to the ED reporting feeling as if "she is going to faint." The symptoms started at about 10am this morning. Pt reports that she was sitting down knitting and then all of a sudden felt "hot," got palpitations, felt jittery. Symptoms lasted ~ 5 minutes. Also reports nausea, no episodes of vomiting. Denies any difficulties walking or with coordination. No changes in speech or vision. Pts daughter at the bedside and reports Pt has been having episodes of this lately and she believes it is a panic attack. pt does admit to a history of anxiety. Pt admitted to hospital 2 weeks ago for same complaints and was later discharged after all testing was WNL. Past Medical History Reviewed: Nursing Documentation, Vital Signs Vital Signs: Last Vital Signs Temp 98.6 F 03/15/19 12:02 Pulse 58 L 03/15/19 12:02 Resp 17 03/15/19 12:02 BP 148/70 03/15/19 12:02 Pulse Ox 97 03/15/19 12:02 - Medical History PMH: Anxiety, Arthritis, Depression, HTN, Hypercholesterolemia, Hyperlipidemia Denies: HIV, Chronic Kidney Disease - Surgical History Surgical History: Cholecystectomy - Family History Family History: States: Unknown Family Hx, Diabetes, Hypertension - Living Arrangements Living Arrangements: With Family - Social History Current smoker - smoking cessation education provided: No Alcohol: None Drugs: Denies - Home Medications Home Medications: Ambulatory Orders Medication Instructions Recorded Aspirin [Ecotrin] 81 mg PO DAILY 01/25/16 Brimonidine Tartrate 1 drop BOTHEYES BID 01/25/16 Dorzolamide HCl [Trusopt] 1 drop BOTHEYES BID 01/25/16 Simvastatin [Zocor] 40 mg PO DAILY 01/25/16 Meclizine [Meclizine*] 25 mg PO Q12 #30 tab 01/26/16 amLODIPine [Norvasc] 5 mg PO DAILY #30 tab 01/09/17 Latanoprost/Pf [Latanoprost 0.005% 1 drop BOTHEYES DAILY 03/06/19 Eye Drop] busPIRone [Buspar] 10 mg PO BID 03/06/19 Alprazolam [Xanax] 0.5 mg PO HS #5 tab 03/15/19 - Allergies Allergies/Adverse Reactions: Allergies Allergy/AdvReac Type Severity Reaction Status Date / Time acetaminophen [From Percocet] Allergy FAINT Verified 03/15/19 12:01 hydrochlorothiazide Allergy MOUTH Verified 03/15/19 12:01 TINGLING losartan [Losartan] Allergy MOUTH Verified 03/15/19 12:01 TINGLING oxycodone HCl [From Percocet] Allergy FAINT Verified 03/15/19 12:01 topiramate [From Topamax] Allergy TINGLING Verified 03/15/19 12:01 TO BODY valacyclovir HCl Allergy URTICARIA Verified 03/15/19 12:01 [From Valtrex] Review of Systems ROS Statement: Except As Marked, All Systems Reviewed And Found Negative Cardiovascular: Positive for: Palpitations Psych: Positive for: Anxiety Physical Exam - Reviewed Nursing Documentation Reviewed: Yes Vital Signs Reviewed: Yes - Physical Exam Appears: Positive for: Well, Non-toxic, No Acute Distress Head Exam: Positive for: ATRAUMATIC, NORMAL INSPECTION, NORMOCEPHALIC Skin: Positive for: Normal Color, Warm, DRY Eye Exam: Positive for: EOMI, Normal appearance, PERRL ENT: Positive for: Normal ENT Inspection Neck: Positive for: Normal, Painless ROM Cardiovascular/Chest: Positive for: Regular Rate, Rhythm Respiratory: Positive for: CNT, Normal Breath Sounds Gastrointestinal/Abdominal: Positive for: Normal Exam, Soft Back: Positive for: Normal Inspection Extremity: Positive for: Normal ROM Neurological/Psych: Positive for: Awake, Alert, Normal Tone - Laboratory Results Result Diagrams: 03/15/19 12:50 03/15/19 12:50 - ECG O2 Sat by Pulse Oximetry: 97 Medical Decision Making Medical Decision Making: EKG interpreted and cleared by ED MD Pt placed on x ray service technician, vitals stable IV access established and diagnostics ordered Pt reports feeling asymptomatic at this time. Labs resulted and reviewed with Pt who demonstrated full understanding. Pt reports she feels ok enough to go home. Pt offered observation again and declined. Disposition - Clinical Impression Clinical Impression: Panic attack - Patient ED Disposition Is Patient to be Admitted: No - Disposition Disposition: Routine/Home Disposition Time: 17:14 Condition: STABLE Prescriptions: Alprazolam [Xanax] 0.5 mg PO HS #5 tab Instructions: Panic Disorder (DC) Forms: [employer] (Telugu) Print Language: PRYDEINIG
[2019-03-15 12:55] LABS: BASO # 0.1 K/uL (0.0-0.2); EOS # 0.1 K/uL (0.0-0.7); EOS % 1.6 % (0.0-4.0); HEMOGLOBIN 12.6 g/dL (12.0-16.0); LYMPH # 1.5 K/uL (1.0-4.3); LYMPH % 16.9 % (20.0-40.0); MEAN CORPUSCULAR HEMOGLOBIN 25.3 pg (27.0-31.0); MEAN CORPUSCULAR HGB CONC 32.5 g/dL (33.0-37.0); MEAN PLATELET VOLUME 7.8 fl (7.2-11.7); MONO # 0.5 K/uL (0.0-0.8); MONO % 5.6 % (0.0-10.0); NEUT # 6.8 K/uL (1.8-7.0); NEUT % 74.9 % (50.0-75.0); NRBC % 0.1 % (0.0-0.0); RBC 4.96 Mil/uL (3.80-5.20); RED CELL DISTRIBUTION WIDTH 16.9 % (11.5-14.5); WHITE BLOOD COUNT 9.1 K/uL (4.8-10.8)
[2019-03-15 13:17] LABS: ALB/GLOB RATIO 1.3 (1.0-2.1); ALBUMIN 4.5 g/dL (3.5-5.0); ALT/SGPT 19 U/L (9-52); AST/SGOT 23 U/L (14-36); BLOOD UREA NITROGEN 10 mg/dl (7-17); CALCIUM 9.9 mg/dL (8.4-10.2); GFR NON-AFRICAN AMERICAN > 60
--- NOTE | 2019-03-15 14:26 | RAD ---
Date of service: 03/15/2019 PROCEDURE: CHEST RADIOGRAPH, 1 VIEW HISTORY: med screening COMPARISON: 03/06/2019 FINDINGS: LUNGS: Clear. PLEURA: No pneumothorax or pleural fluid seen. CARDIOVASCULAR: No aortic atherosclerotic calcification present. Normal. OSSEOUS STRUCTURES: No significant abnormalities. VISUALIZED UPPER ABDOMEN: Normal. OTHER FINDINGS: None. IMPRESSION: No active disease.
[2019-03-15 17:54] VITALS: BP 130/75; PULSE 61; RESP 21; TEMP 97.6; O2SAT 98
--- NOTE | 2019-03-15 19:01 | CARD ---
APPROVED REPORT Date of service: 03/15/2019 EKG Measurement Heart [id number] <Conclusion> Sinus bradycardia with 1st degree AV block Otherwise normal ECG
== END 2019-03-15 17:55 | disposition home or self-care (01) ==
LOC: H.ER 11:56
DX: F41.0 Panic disorder [episodic paroxysmal anxiety] (principal); E78.00 Pure hypercholesterolemia, unspecified; I10 Essential (primary) hypertension; I44.0 Atrioventricular block, first degree